=== PATIENT | male | born 1965 | race Caucasian/White ===

== ENCOUNTER 2024-03-28 13:47 | Inpatient (IN) | payer OTHER ==
[2024-03-28 15:16] VITALS: BMI 32.5
[2024-03-28] MEDS ORDERED: MAGNESIUM HYDROX 2400MG/30ML ORAL SUSPENSION 30 ML CUP PO PRN (16:28)
[2024-03-28] MEDS ORDERED: BENZONATATE 200 MG CAPSULE PO PRN (16:28)
[2024-03-28] MEDS ORDERED: MAG HYDROX/AL HYDROX/SIMETH 30 ML UNIT-DOSE CUP PO PRN (16:28)
[2024-03-28] MEDS ORDERED: IBUPROFEN 400 MG TABLET (FP) PO PRN (16:28)
[2024-03-28] MEDS ORDERED: POLYETHYLENE GLYCOL (HEALTHYLAX) 3350 17 GM PACKET PO PRN (16:28)
[2024-03-28] MEDS ORDERED: NALOXONE HCL (KLOXXADO) 8 MG SPRAY NS PRN (16:28)
[2024-03-28] MEDS ORDERED: BENZOCAINE/MENTHOL (CHLORASEPTIC ) LOZENGE MM PRN (16:28)
[2024-03-28] MEDS ORDERED: guaiFENesin 600 MG TABLET.ER (FP) PO PRN (16:28)
[2024-03-28] MEDS ORDERED: IBUPROFEN 600 MG TABLET (FP) PO PRN (16:28)
[2024-03-28] MEDS ORDERED: LOPERAMIDE HCL 2 MG CAPSULE PO PRN (16:28)
[2024-03-28] MEDS ORDERED: BISMUTH SUBSALICYLATE 524 MG/30 ML PO PRN (16:28)
[2024-03-28] MEDS ORDERED: NALOXONE HCL 0.4 MG/ML VIAL IM PRN (16:28)
[2024-03-28] MEDS ORDERED: DICYCLOMINE HCL 10 MG CAPSULE PO PRN (16:28)
[2024-03-28] MEDS ORDERED: ONDANSETRON *ODT* 4 MG TABLET SL PRN (16:28)
[2024-03-28] MEDS ORDERED: diazePAM 5 MG TABLET ONE (17:19)
[2024-03-28] MEDS ORDERED: methaDONE HCL 10 MG TABLET (FOR DETOX USE ONLY) ONE (17:20)
[2024-03-28] MEDS: methaDONE HCL 10 MG TABLET (FOR DETOX USE ONLY) PO ONE (17:29)
[2024-03-28] MEDS: diazePAM 5 MG TABLET PO SCH (17:29)
[2024-03-28] MEDS: diazePAM 5 MG TABLET PO PRN (19:50)
[2024-03-28] MEDS: MELATONIN 5 MG TABLETS PO SCH (22:03)
[2024-03-28] MEDS: THIAMINE 100 MG TABLET PO SCH (22:03)
[2024-03-28] MEDS: hydrOXYzine PAMOATE 25 MG CAPSULE (FP) PO PRN (23:41)
[2024-03-28] MEDS: METHOCARBAMOL 500 MG TABLET PO PRN (23:41)
[2024-03-29] MEDS: cloNIDine HCL 0.1 MG TABLET PO PRN (01:01)
[2024-03-29] MEDS ORDERED: ESCITALOPRAM OXALATE 10 MG TABLET ONE (09:59)
[2024-03-29] MEDS ORDERED: amLODIPine BESYLATE 5 MG TABLET (FP) PO SCH (10:00)
[2024-03-29] MEDS: ESCITALOPRAM OXALATE 20 MG TABLET PO SCH (10:00)
[2024-03-29] MEDS: amLODIPine BESYLATE 5 MG TABLET (FP) PO SCH (10:01)
[2024-03-29] MEDS: PRENATAL VITAMINS W/ FOLIC ACID TABLET (FP) PO SCH (10:03)
[2024-03-29 10:23] LABS: HEMATOCRIT 38.4 % (35.4-49); HEMOGLOBIN 12.9 GM/dL (11.7-16.9); MCH 30.5 pg (25.7-33.7); MCHC 33.7 g/dl (32.0-35.9); MEAN CELL VOLUME 90.5 fl (80-96); PLATELET COUNT 214 10^3/uL (134-434); RBC 4.25 M/mm3 (4.00-5.60); RDW 13.6 % (11.9-15.9); WHITE BLOOD COUNT 9.6 K/mm3 (4.0-10.0)
[2024-03-29 10:26] LABS: CHLORIDE 105 mmol/L (98-107); POTASSIUM 4.2 mmol/L (3.5-5.1); SODIUM 138 mmol/L (136-145)
[2024-03-29 10:28] LABS: CALCIUM 9.8 mg/dL (8.5-10.1)
[2024-03-29 10:29] LABS: ALBUMIN 4.3 g/dl (3.4-5.0); ANION GAP 2 mmol/L (4-13); BLOOD UREA NITROGEN 30.5 mg/dL (7-18); CO2 31 mmol/L (21-32); GLUCOSE,RANDOM 98 mg/dL (74-106)
[2024-03-29 10:31] LABS: CREATININE 1.7 mg/dL (0.55-1.3); SGPT/ALT 36 U/L (13-61)
[2024-03-29 10:33] LABS: BILIRUBIN,TOTAL 0.4 mg/dL (0.2-1); SGOT/AST 14 U/L (15-37); TOT PROT 7.5 g/dl (6.4-8.2)
[2024-03-29 10:35] LABS: ALK PHOS 71 U/L (45-117)
[2024-03-29] MEDS: chlordiazePOXIDE HCL 25 MG CAPSULE PO SCH (11:30)
[2024-03-29] MEDS: GABAPENTIN 100 MG CAPSULE PO SCH (13:45)
[2024-03-29] MEDS: propRANOLol HCL 10 MG TABLET PO SCH (13:45)
[2024-03-29] MEDS: chlordiazePOXIDE HCL 25 MG CAPSULE PO PRN (19:46)
[2024-03-29] MEDS: ATORVASTATIN CA 20 MG TABLET (FP) PO SCH (22:16)
[2024-03-29] MEDS: SUVOREXANT 10 MG TABLET PO PRN (22:16)
[2024-03-30] MEDS: chlordiazePOXIDE HCL 10 MG CAPSULE PO SCH (05:39)
[2024-03-30] MEDS: ACETAMINOPHEN 325 MG TABLET (FP) PO PRN (05:40)
[2024-03-30] MEDS ORDERED: diazePAM 5 MG TABLET PO SCH (06:00)
[2024-03-30] MEDS ORDERED: ESCITALOPRAM OXALATE 10 MG TABLET ONE (10:02)
[2024-03-30] MEDS: methaDONE HCL 10 MG TABLET (FOR DETOX USE ONLY) PO ONE (10:05)
[2024-03-30 21:06] VITALS: RESP 18
[2024-03-31] MEDS: chlordiazePOXIDE HCL 10 MG CAPSULE PO SCH (05:42)
[2024-03-31] MEDS ORDERED: diazePAM 5 MG TABLET PO SCH (06:00)
[2024-03-31 09:34] VITALS: BP 126/77; PULSE 67; TEMP 97.8
[2024-03-31] MEDS ORDERED: ESCITALOPRAM OXALATE 10 MG TABLET ONE (09:51)
[2024-04-01] MEDS ORDERED: chlordiazePOXIDE HCL 10 MG CAPSULE PO ONE (05:00)
[2024-04-01] MEDS ORDERED: diazePAM 5 MG TABLET PO ONE (06:00)
== END 2024-03-31 12:50 | disposition home or self-care (01) | DRG 897 ==
LOC: YASAS 13:47 → Y6N 17:14
PROVIDERS: ADMIT Allergy & Immunology; ATTEND Surgery
PROC: HZ2ZZZZ Detoxification Services for Substance Abuse Treatment (ICD-10-PCS; principal; 2024-03-28)
DX: F11.23 Opioid dependence with withdrawal (principal); F19.282 Other psychoactive substance dependence with psychoactive substance-induced sleep disorder; F19.280 Other psychoactive substance dependence with psychoactive substance-induced anxiety disorder; F13.230 Sedative, hypnotic or anxiolytic dependence with withdrawal, uncomplicated; F19.24 Other psychoactive substance dependence with psychoactive substance-induced mood disorder; F41.1 Generalized anxiety disorder; I25.10 Atherosclerotic heart disease of native coronary artery without angina pectoris; I10 Essential (primary) hypertension; N28.9 Disorder of kidney and ureter, unspecified; E78.5 Hyperlipidemia, unspecified; K75.81 Nonalcoholic steatohepatitis (NASH); R73.03 Prediabetes; Z86.19 Personal history of other infectious and parasitic diseases; Z91.410 Personal history of adult physical and sexual abuse; Z63.0 Problems in relationship with spouse or partner; Z86.69 Personal history of other diseases of the nervous system and sense organs
CPT/HCPCS: 36415; 80053; 80305; 80307; 82962; 85027; 86780; 93005; 93010